=== PATIENT | female | born 1940 | race African-American/Black ===

== ENCOUNTER 2020-09-03 10:14 | Outpatient (REF) | payer OTHER, SELFPAY ==
[2020-09-03 11:19] LABS: MANUAL DIFF FLAG NO
[2020-09-03 11:47] LABS: Basophils Percent Auto 0.9 % (0-2); Eosinophils Absolute Auto 0.1 X10*3/uL (0.0-0.4); Eosinophils Percent Auto 1.9 % (0-4); Hematocrit 38.7 % (37-47); Hemoglobin 12.3 g/dl (12.0-16.0); Imm Gran Abs Auto 0.01 X10*3/uL (0.00-0.03); Imm Gran Pct Auto 0.2 % (0.0-0.4); Lymphocytes Absolute Auto 2.5 X10*3/uL (1.2-4.9); Lymphocytes Percent Auto 57.4 % (20-40); Mean Corpuscular HGB Conc 31.8 g/dl (31.0-35.0); Mean Corpuscular Hemoglobin 28.5 pg (27.0-33.0); Mean Corpuscular Volume 89.6 fL (80-98); Mean Platelet Volume 9.9 fL (9.4-12.3); Monocytes Absolute Auto 0.3 X10*3/uL (0.1-1.2); Monocytes Percent Auto 6.9 % (2-11); Neutrophils Absolute Auto 1.4 X10*3/uL (2.0-8.3); Neutrophils Percent Auto 32.7 % (45-73); Platelet Count 270 X10*3/uL (160-400); Red Blood Count 4.32 X10*6/uL (4.20-5.50); Red Cell Distribution Width 13.1 % (11.0-16.0); White Blood Count 4.3 X10*3/uL (4.8-10.8)
[2020-09-03 12:09] LABS: Alanine Aminotransferase 24 U/L (0-31); Albumin Level 4.1 g/dL (3.5-5.0); Alkaline Phosphatase 78 U/L (39-117); Anion Gap 11 (12-20); Aspartate Amino Transferase 29 U/L (5-31); Bilirubin Total 0.8 mg/dL (0.0-1.0); Blood Urea Nitrogen 8 mg/dL (9-16); Carbon Dioxide 28 mmol/L (22-29); Chloride 107 mmol/L (96-108); Cholesterol 247 mg/dL; Estimated Glomerular Filt Rate > 60; Glucose Fasting 86 mg/dL (60-99); HDL Cholesterol 70 mg/dL; LDL Cholesterol Calculated 155 mg/dl; Potassium 4.3 mmol/l (3.3-5.1); Sodium 142 mmol/L (135-145); Triglycerides 114 mg/dL
[2020-09-03 12:35] LABS: Thyroid Stimulating Hormone 1.24 uIU/mL (0.32-4.0); Vitamin D 25-OH Total 17.8 ng/mL (>30)
== END 2020-09-03 10:15 | disposition home or self-care (01) ==
LOC: HO.HMGCLDS 10:14
PROVIDERS: PCP Internal Medicine; Visit Provider Internal Medicine
DX: J44.9 Chronic obstructive pulmonary disease, unspecified (principal); Z76.89 Persons encountering health services in other specified circumstances; I10 Essential (primary) hypertension; E78.2 Mixed hyperlipidemia; E55.9 Vitamin D deficiency, unspecified
CPT/HCPCS: 36415; 80053; 80061; 82306; 84443; 85025

== ENCOUNTER 2020-09-05 11:07 | Outpatient (REF) | payer OTHER, SELFPAY ==
--- NOTE | 2020-09-05 11:13 | XR_ITS ---
EXAMINATION: XR CHEST CLINICAL INFORMATION: COPD COMPARISON: None TECHNIQUE: 2 views of the chest were obtained. FINDINGS: There is hyperinflation/COPD. The heart is normal in size. The vascularity is normal. There is no vascular congestion, airspace consolidation, groundglass opacity, or effusion. The costophrenic sulci are clear. The hilar and mediastinal contours are normal. There is gentle dextrocurvature thoracic spine with mild multilevel degenerative changes mid thoracic region. XR/XR chest 2V IMPRESSION: Hyperinflation/COPD. Lungs clear.
== END 2020-09-05 11:08 | disposition home or self-care (01) ==
LOC: HO.HMGCLDS 11:07
PROVIDERS: PCP Internal Medicine; Visit Provider Internal Medicine
DX: J44.9 Chronic obstructive pulmonary disease, unspecified (principal)
CPT/HCPCS: 71046

== ENCOUNTER → 2020-09-28 09:47 | Outpatient (BNVA) | payer OTHER, SELFPAY | PROVIDERS: PCP Internal Medicine; Visit Provider Hospitalist | DX: Z76.89 Persons encountering health services in other specified circumstances (principal) ==

== ENCOUNTER → 2020-11-12 13:00 | Outpatient (BNVA) | payer OTHER, SELFPAY | PROVIDERS: PCP Internal Medicine; Visit Provider Hospitalist ==

== ENCOUNTER → 2020-12-24 09:09 | Outpatient (BNVA) | payer MEDICARE, SELFPAY | PROVIDERS: PCP Nurse Practitioner Family; Visit Provider Hospitalist | DX: J45.40 Moderate persistent asthma, uncomplicated (principal); J30.9 Allergic rhinitis, unspecified; J40 Bronchitis, not specified as acute or chronic | CPT/HCPCS: 99212 ==

== ENCOUNTER 2021-02-01 10:32 | Outpatient (REF) | payer MEDICARE, SELFPAY ==
--- NOTE | 2021-02-01 | PFT_ITS ---
Forced vital capacity is slightly decreased. FEV1, QNH51-86, and MVV are markedly decreased. Post-bronchodilator therapy, there is no significant change. Total lung capacity and residual volume are normal. Diffusion capacity, moderately decreased. CONCLUSION: These results are consistent with severe obstructive airway disorder. There is no response to bronchodilator therapy. Clinical correlation is recommended. MD NADYA King/KATIUSKA / [id number]
== END 2021-02-01 10:33 | disposition home or self-care (01) ==
LOC: HO.RESP 10:32
PROVIDERS: PCP Nurse Practitioner Family; Visit Provider Hospitalist
DX: J44.9 Chronic obstructive pulmonary disease, unspecified (principal)
CPT/HCPCS: 94060; 94727; 94729

== ENCOUNTER 2021-02-19 10:23 | Outpatient (REF) | payer MEDICARE, SELFPAY | END 2021-02-19 10:24 | disposition home or self-care (01) | LOC: HO.MDS 10:23 | PROVIDERS: PCP Nurse Practitioner Family; Visit Provider Hospitalist | DX: J45.50 Severe persistent asthma, uncomplicated (principal) | CPT/HCPCS: 96372; J2357 ==

== ENCOUNTER 2021-03-05 10:10 | Outpatient (REF) | payer MEDICARE, SELFPAY | END 2021-03-05 10:11 | disposition home or self-care (01) | LOC: HO.MDS 10:10 | PROVIDERS: PCP Nurse Practitioner Family; Visit Provider Hospitalist | DX: J45.50 Severe persistent asthma, uncomplicated (principal) | CPT/HCPCS: 96372; J2357 ==

== ENCOUNTER 2021-03-19 10:50 | Outpatient (REF) | payer MEDICARE, SELFPAY | END 2021-03-19 10:51 | disposition home or self-care (01) | LOC: HO.MDS 10:50 | PROVIDERS: Visit Provider Hospitalist | DX: J45.50 Severe persistent asthma, uncomplicated (principal) | CPT/HCPCS: 96372; J2357 ==

== ENCOUNTER 2021-03-27 07:56 | Outpatient (REF) | payer MEDICARE, SELFPAY ==
--- NOTE | ~2021-03-27 | XR_ITS ---
EXAMINATION: CR X-RAY KNEE IS BILATERAL CLINICAL INFORMATION: Knee pain. COMPARISON: None TECHNIQUE: 3 views of the right knee were obtained along with standing AP views of both knees. FINDINGS: Mild femoral-tibial joint space narrowing and minimal marginal osteophyte formation is seen bilaterally. Severe degenerative changes are seen in the lateral patellofemoral articulation. Mild degenerative changes are seen medially. There is no significant joint effusion. The soft tissues are unremarkable. XR/XR knee RT 2V IMPRESSION: Tricompartmental degenerative joint changes most pronounced in the lateral patellofemoral compartment. No acute abnormality.
--- NOTE | ~2021-03-27 | XR_ITS ---
EXAMINATION: CR X-RAY KNEE IS BILATERAL CLINICAL INFORMATION: Knee pain. COMPARISON: None TECHNIQUE: 3 views of the right knee were obtained along with standing AP views of both knees. FINDINGS: Mild femoral-tibial joint space narrowing and minimal marginal osteophyte formation is seen bilaterally. Severe degenerative changes are seen in the lateral patellofemoral articulation. Mild degenerative changes are seen medially. There is no significant joint effusion. The soft tissues are unremarkable. XR/XR knee standing BI IMPRESSION: Tricompartmental degenerative joint changes most pronounced in the lateral patellofemoral compartment. No acute abnormality.
== END 2021-03-27 07:57 | disposition home or self-care (01) ==
LOC: HO.HOSX 07:56
PROVIDERS: Visit Provider Physician Assistant
DX: M17.11 Unilateral primary osteoarthritis, right knee (principal)
CPT/HCPCS: 20610; 73560; 73565; 99202; J1040

== ENCOUNTER 2021-04-05 10:25 | Outpatient (REF) | payer MEDICARE, SELFPAY | END 2021-04-05 10:26 | disposition home or self-care (01) | LOC: HO.MDS 10:25 | PROVIDERS: PCP Nurse Practitioner Family; Visit Provider Hospitalist | DX: J45.50 Severe persistent asthma, uncomplicated (principal) | CPT/HCPCS: 96372; J2357 ==

== ENCOUNTER 2021-04-22 09:18 | Outpatient (REF) | payer MEDICARE, SELFPAY | END 2021-04-22 09:19 | disposition home or self-care (01) | LOC: HO.MDS 09:18 | PROVIDERS: PCP Nurse Practitioner Family; Visit Provider Hospitalist | DX: J45.50 Severe persistent asthma, uncomplicated (principal) | CPT/HCPCS: 96372; J2357 ==

== ENCOUNTER 2021-05-14 09:06 | Outpatient (REF) | payer MEDICARE, SELFPAY ==
--- NOTE | ~2021-05-14 | XR_ITS ---
EXAMINATION: XR CHEST CLINICAL INFORMATION: Moderate persistent asthma, uncomplicated. COMPARISON: None TECHNIQUE: 2 views of the chest were obtained. FINDINGS: The lungs are well-expanded and clear of acute pneumonic process. There is minimal atelectatic changes in right lower lobe.. There is mild blunting of right CP angle from pleural effusion or pleural thickening. The heart size and pulmonary vascularity is normal. There is mild dextroscoliosis of dorsal spine. There is no lytic process. XR/XR chest 2V IMPRESSION: Mild blunting of right CP angle from pleural effusion or pleural thickening. There is minimal linear atelectasis in right lung base.
== END 2021-05-14 09:07 | disposition home or self-care (01) ==
LOC: HO.XRAY 09:06
PROVIDERS: PCP Nurse Practitioner Family; Visit Provider Hospitalist
DX: J45.40 Moderate persistent asthma, uncomplicated (principal); J44.9 Chronic obstructive pulmonary disease, unspecified; J30.9 Allergic rhinitis, unspecified; J40 Bronchitis, not specified as acute or chronic
CPT/HCPCS: 71046; 99212

== ENCOUNTER → 2021-06-18 12:54 | Outpatient (BNVA) | payer MEDICARE, SELFPAY | PROVIDERS: PCP Nurse Practitioner Family; Visit Provider Hospitalist | DX: J45.40 Moderate persistent asthma, uncomplicated (principal) | CPT/HCPCS: 99211 ==

== ENCOUNTER → 2021-08-15 09:38 | Outpatient (BNVA) | payer MEDICARE, SELFPAY | PROVIDERS: PCP Registered Nurse; Visit Provider Hospitalist | DX: J45.40 Moderate persistent asthma, uncomplicated (principal); J30.9 Allergic rhinitis, unspecified; R06.00 Dyspnea, unspecified; R07.89 Other chest pain | CPT/HCPCS: 99212 ==

== ENCOUNTER 2022-02-19 09:19 | Outpatient (REF) | payer MEDICARE, MEDICAID, SELFPAY ==
[2022-02-19 10:47] LABS: MANUAL DIFF FLAG NO
[2022-02-19 11:48] LABS: Basophils Percent Auto 0.6 % (0-2); Eosinophils Absolute Auto 0.1 X10*3/uL (0.0-0.4); Eosinophils Percent Auto 1.1 % (0-4); Hematocrit 39.9 % (37.0-47.0); Hemoglobin 12.4 g/dl (12.0-16.0); Imm Gran Abs Auto 0.01 X10*3/uL (0.00-0.03); Imm Gran Pct Auto 0.2 % (0.0-0.4); Lymphocytes Absolute Auto 1.9 X10*3/uL (1.2-4.9); Lymphocytes Percent Auto 39.6 % (20-40); Mean Corpuscular HGB Conc 31.1 g/dl (31.0-35.0); Mean Corpuscular Volume 90.1 fL (80.0-98.0); Mean Platelet Volume 10.1 fL (9.4-12.3); Monocytes Absolute Auto 0.3 X10*3/uL (0.1-1.2); Monocytes Percent Auto 7.2 % (2-11); Neutrophils Absolute Auto 2.4 x10*3/uL (2.0-8.3); Neutrophils Percent Auto 51.3 % (45-73); Platelet Count 281 X10*3/uL (160-400); Red Blood Count 4.43 X10*6/uL (4.20-5.50); Red Cell Distribution Width 13.5 % (11.0-16.0); White Blood Count 4.8 X10*3/uL (4.8-10.8)
[2022-02-19 11:51] LABS: D Dimer High Sensitivity 285 NG/ML
[2022-02-19 12:35] LABS: Anion Gap 12 (12-20); Blood Urea Nitrogen 6 mg/dL (9-16); Calcium 9.8 mg/dL (8.4-10.2); Carbon Dioxide 32 mmol/L (22-29); Chloride 103 mmol/L (96-108); Estimated Glomerular Filt Rate > 60; Glucose Random 93 mg/dL (60-115); Potassium 4.2 mmol/L (3.3-5.1); Sodium 143 mmol/L (135-145)
[2022-02-19 12:39] LABS: Troponin-I High Sensitivity 6.2 ng/L (<3.5-17.0)
[2022-02-19 12:51] LABS: Erythrocyte Sedimentation Rate 14 MM/HR (0-20)
[2022-02-21 14:32] LABS: Alpha 1 Anti-trypsin 125 mg/dL (83-199)
== END 2022-02-19 09:20 | disposition home or self-care (01) ==
LOC: HO.LAB 09:19
PROVIDERS: PCP Registered Nurse; Visit Provider Hospitalist
DX: J44.1 Chronic obstructive pulmonary disease with (acute) exacerbation (principal); J45.40 Moderate persistent asthma, uncomplicated; J30.9 Allergic rhinitis, unspecified; R07.89 Other chest pain; R06.00 Dyspnea, unspecified; R78.89 Finding of other specified substances, not normally found in blood
CPT/HCPCS: 36415; 80048; 82103; 84484; 85025; 85379; 85652; 99212

== ENCOUNTER 2022-02-21 08:09 | Outpatient (REF) | payer MEDICARE, MEDICAID, SELFPAY ==
--- NOTE | ~2022-02-21 | CT_ITS ---
EXAMINATION: CT ANGIOGRAM OF THE CHEST WITH AND WITHOUT CONTRAST (CT PULMONARY ANGIOGRAM FOR PE) CLINICAL INFORMATION: Reason for Exam R07.89 - Other chest pain COMPARISON: Previous chest x-ray most recent April 2021 TECHNIQUE: Prior to contrast administration, noncontrast localization images were obtained. Subsequently, multidetector volumetric imaging was performed from the thoracic inlet to below the diaphragms following the administration of 65 mL Omnipaque 350 intravenous contrast. No contrast reaction reported Sagittal, coronal, and MIP oblique sagittal reformatted images were obtained on the CT workstation, uploaded to PACS, and reviewed. This CT examination was performed using dose optimization techniques as appropriate, variously including the following: *Automated exposure control *Adjustment of mA and/or kV according to patient size (this includes techniques or standardized protocols for targeted exams where dose is matched to indication/reason for exam; i.e. extremities or head) *Use of iterative reconstruction technique Total exam dose-length product 96 mGy-cm FINDINGS: QUALITY OF STUDY/CONTRAST BOLUS: Satisfactory. PULMONARY ARTERIES: No central or segmental pulmonary emboli. The pulmonary arteries are upper normal in size. THORACIC AORTA: No aneurysm or dissection. LUNG: There is mild emphysema. There is almost complete right middle lobe atelectasis. There is a subsegmental atelectasis seen in the lingula and left lower lobe. There are scattered areas of mild bronchial wall thickening. No endobronchial or endotracheal lesion is seen. PLEURA: No pleural effusion or pneumothorax. MEDIASTINUM: The heart is enlarged. Mild coronary artery calcification. No pericardial effusion. No hilar or mediastinal lymphadenopathy. No evidence of septal bowing or right heart strain. CHEST WALL/AXILLA: No axillary or internal mammary lymphadenopathy. OSSEOUS STRUCTURES: No acute or suspicious osseous abnormality. UPPER ABDOMEN: Unremarkable. No reflux of contrast into the hepatic veins to suggest elevated right heart pressures. CT/CT angio chest PE protocol IMPRESSION: No evidence of pulmonary embolism. Mild emphysema. Almost complete right middle lobe atelectasis. Subsegmental atelectasis in the inferior segment of the lingula and left lower lobe. Mild airways disease. Enlarged heart. Mild coronary artery calcification. Upper normal-size pulmonary arteries. VTE: negative
[2022-02-21] MEDS: iohexoL 350 MG/ML 100 ML INFUS..BTL IV (09:25)
== END 2022-02-21 08:10 | disposition home or self-care (01) ==
LOC: HO.CT 08:09
PROVIDERS: PCP Registered Nurse; Visit Provider Hospitalist
DX: R07.89 Other chest pain (principal); R06.00 Dyspnea, unspecified; R78.89 Finding of other specified substances, not normally found in blood
CPT/HCPCS: 71275; Q9967

== ENCOUNTER → 2022-05-20 11:29 | Outpatient (REF) | payer OTHER, SELFPAY ==
--- NOTE | 2022-05-20 11:41 | ECG_ITS ---
Test Reason : CP Blood Pressure : / mmHG Vent. Rate : 065 BPM Atrial Rate : 065 BPM P-R Int : 162 ms QRS Dur : 072 ms QT Int : 376 ms P-R-T Axes : 079 043 040 degrees QTc Int : 391 ms Normal sinus rhythm with sinus arrhythmia Normal ECG No previous ECGs available Referred By: Rosalio Orta Electronically Signed By:SHE HOGUE
== END ==
LOC: HO.CARD 11:29
PROVIDERS: Visit Provider Hospitalist
DX: R07.89 Other chest pain (principal); J44.9 Chronic obstructive pulmonary disease, unspecified; J45.40 Moderate persistent asthma, uncomplicated; R06.00 Dyspnea, unspecified; J30.9 Allergic rhinitis, unspecified
CPT/HCPCS: 93005; 99212

== ENCOUNTER → 2022-11-03 11:08 | Outpatient (BNVA) | payer OTHER, SELFPAY | PROVIDERS: Visit Provider Hospitalist | DX: J45.40 Moderate persistent asthma, uncomplicated (principal); J44.1 Chronic obstructive pulmonary disease with (acute) exacerbation; J30.9 Allergic rhinitis, unspecified; R07.89 Other chest pain; R06.00 Dyspnea, unspecified | CPT/HCPCS: 99212 ==

== ENCOUNTER 2022-12-03 08:49 | Outpatient (REF) | payer OTHER, SELFPAY ==
--- NOTE | ~2022-12-03 | XR_ITS ---
EXAMINATION: XR CHEST CLINICAL INFORMATION: Bronchopneumonia COMPARISON: Prior chest April 2021 TECHNIQUE: 2 views of the chest were obtained. FINDINGS: No significant abnormality is noted involving the heart, lungs, mediastinum, bony thorax or soft tissues. XR/XR chest 2V IMPRESSION: Unremarkable examination.
== END 2022-12-03 08:50 | disposition home or self-care (01) ==
LOC: HO.XRAY 08:49
PROVIDERS: Visit Provider Hospitalist
DX: J18.0 Bronchopneumonia, unspecified organism (principal); R06.00 Dyspnea, unspecified; R07.89 Other chest pain; J30.9 Allergic rhinitis, unspecified; J45.41 Moderate persistent asthma with (acute) exacerbation; Z99.81 Dependence on supplemental oxygen
CPT/HCPCS: 71046; 87070; 87077; 87185; 87205; 94640; 99212

== ENCOUNTER → 2023-03-20 13:44 | Outpatient (BNVA) | payer OTHER, SELFPAY | PROVIDERS: Visit Provider Nurse Practitioner Family | DX: J44.9 Chronic obstructive pulmonary disease, unspecified (principal); R06.01 Orthopnea | CPT/HCPCS: 99212 ==

== ENCOUNTER 2023-09-16 08:30 | Outpatient (REF) | payer OTHER, SELFPAY ==
--- NOTE | 2023-09-16 09:09 | ECG_ITS ---
Test Reason : copd Blood Pressure : / mmHG Vent. Rate : 088 BPM Atrial Rate : 088 BPM P-R Int : 174 ms QRS Dur : 070 ms QT Int : 370 ms P-R-T Axes : 073 040 040 degrees QTc Int : 447 ms Normal sinus rhythm Normal ECG When compared with ECG of 20-MAY-2022 11:38, No significant changes seen Referred By: Rosalio Orta Electronically Signed By:BELLA CHANDLER MD
[2023-09-16 09:27] LABS: MANUAL DIFF FLAG NO
[2023-09-16 09:56] LABS: Basophils Absolute Auto 0.1 X10*3/uL (0.0-0.2); Eosinophils Absolute Auto 0.1 X10*3/uL (0.0-0.4); Hematocrit 42.3 % (37.0-47.0); Hemoglobin 13.5 g/dl (12.0-16.0); Imm Gran Abs Auto 0.02 X10*3/uL (0.00-0.03); Imm Gran Pct Auto 0.4 % (0.0-0.4); Lymphocytes Absolute Auto 2.5 X10*3/uL (1.2-4.9); Lymphocytes Percent Auto 50.3 % (20-40); Mean Corpuscular HGB Conc 31.9 g/dl (31.0-35.0); Mean Corpuscular Hemoglobin 28.6 pg (27.0-33.0); Mean Corpuscular Volume 89.6 fL (80.0-98.0); Mean Platelet Volume 9.3 fL (9.4-12.3); Monocytes Absolute Auto 0.4 X10*3/uL (0.1-1.2); Neutrophils Absolute Auto 1.9 x10*3/uL (2.0-8.3); Neutrophils Percent Auto 38.3 % (45-73); Platelet Count 266 X10*3/uL (160-400); Red Blood Count 4.72 X10*6/uL (4.20-5.50); Red Cell Distribution Width 13.1 % (11.0-16.0)
[2023-09-16 10:37] LABS: Erythrocyte Sedimentation Rate 9 MM/HR (0-20)
[2023-09-16 10:46] LABS: Anion Gap 11 (12-20); Blood Urea Nitrogen 8 mg/dL (9-16); Calcium 9.6 mg/dL (8.4-10.2); Carbon Dioxide 30 mmol/L (22-29); Chloride 105 mmol/L (96-108); Estimated Glomerular Filt Rate > 60; Glucose Random 98 mg/dL (60-115); Potassium 3.7 mmol/L (3.3-5.1); Sodium 142 mmol/L (135-145)
[2023-09-16 10:50] LABS: Troponin-I High Sensitivity 4.9 ng/L (<3.5-17.0)
== END 2023-09-16 08:31 | disposition home or self-care (01) ==
LOC: HO.LAB 08:30
PROVIDERS: PCP Internal Medicine; Visit Provider Hospitalist
DX: J45.41 Moderate persistent asthma with (acute) exacerbation (principal); R06.00 Dyspnea, unspecified; J30.9 Allergic rhinitis, unspecified; R07.9 Chest pain, unspecified; J44.9 Chronic obstructive pulmonary disease, unspecified
CPT/HCPCS: 36415; 80048; 84484; 85025; 85652; 93005; 96372; 99212; J2930

== ENCOUNTER 2023-09-16 08:30 | Outpatient (AMB) | payer OTHER, SELFPAY ==
[2023-09-16 08:42] VITALS: BP 124/70; PULSE 89; O2SAT 93; BMI 20.9
--- NOTE | 2023-09-16 08:42 | A.OFFVIS_ITS ---
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 At the last office visit patient has been switched to Wixela, however she still has suboptimal control of her underlying allergies. She also uses Singulair and albuterol MDI. She has completed her laboratory testing. She denies any recent exacerbation, though her symptoms are not controlled at the baseline. She is still having issues with her asthma. Having significant chest tightness. Moderate severity. Response of the nebulized therapy but she has been having to use it a couple times a day. She did start the Xolair. She states that wixela inhalers not helping. Will try to maximize her respiratory therapy at this time. In the meantime she needs to continue taking the Xolair to see if this can be effective for. I explained to her that it may take up to 4- 6 months to see the real affects of the Xolair. 05/20/2022 The patient is here for a pulmonary follow up visit. She is still having a hard time with her breathing. She does not responds well to the inhalers. She has daily episodes and responds well to albuterol via nebulizer. She also tried and failed biologic therapy. She did undergo a CT chest demonstrating mosiac pattern due to the small airways disease. She also has coronary artery calcifications. Also, CT chest has evidence of atelectasis. We will trial nebulized therapy and will consider Daliresp if no better. Also will go ahead with a cardiology evaluation. 11/03/2022 the patient is here for a pulmonary follow-up visit. The patient has complains of worsening chest tightness and wheezing. Her symptoms are now worse at nighttime. She is waking up with wheezing and needing to give herself a breathing treatment. She has been on nebulized therapy both with budesonide and DuoNeb. She does use between 3-4 treatments a day. The patient has tried and failed multiple inhalers in the past. She also tried and failed Xolair and also Dupixent for her significant allergic asthma. We did talk about considering other biologic therapy such as Tezspire. She does have an elevated IgE and also has significant allergies on her blood work. The on examination she does have some wheezing. Her CT scan does demonstrate mosaic pattern consistent with small airways disease. Will go ahead and refer her to Allergy and start her on a prednisone taper again. 12/03/2022 the patient is here for sick visit. She has been sick now for the last 3-4 days. She is developing worsening cough. Very deep in congested. Difficult to expectorate. She feels very tired and weak. She is having increasing chest tightness and wheezing. When she is able to expectorate the mucus is very thick and tenacious in green in color. In the office she did have evidence of rhonchi and also crackles on the left base. The patient did receive hypertonic saline with Xopenex and then were able to get a sputum for culture. will go ahead and send a course of antibiotics to the pharmacy. She does have multiple allergies. The patient also has some wheezing will send her some prednisone as well. She does appear to be frail. Her oxygen appears to be adequate at this time. Will go ahead and treat her with prednisone antibiotics. However, if her conditions worsen she is to call the office or go to the ER for further care. She is going to continue with the nebulized therapy. Once we get the culture of her sputum will go ahead and tailor the antibiotic therapy. 09/16/2023 the patient is here for a pulmonary follow-up visit. The patient is complaining of substernal chest tightness. This is been going on now for several days. She complains of shortness of breath at rest and also with m inimal activity. She has not been responding to her respiratory medications. She feels that she has a lot of airway resistance. In the office she does have bad very diminished breath sounds and prolonged expiratory phase will going to give her a dose of Solu-Medrol to see if this provides some relief. We did go for brief walking oximetry in the heart rate went up to about 133 in the patient was dyspneic with dyspnea score of 6/10. Pulse ox was stable. Explained to her that she if she continues to develop the chest discomfort she may need to go to the ER to assess any cardiac issues. Meantime she will undergo blood work including a troponin I and also undergo an EKG. If her does have abnormal that will also call her to go to the ER. In the meantime will go ahead and treat her with some prednisone for her asthma exacerbation with chest tightness that may also be contributing to her ongoing chest tightness. 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 Maternal Grandmother HTN (hypertension) Diabetes mellitus Daughter Tonsillar cancer Smoker Housing: Apartment Housing Other:: living with daughter Alcohol intake: current Alcohol intake frequency: a few times a month Alcohol type: beer Patient Tobacco Use Status: Never used Tobacco e-Cigarette/Vaping Use: Never Used Second Hand Smoke Exposure: No service: No Current occupational status: retired Review of Systems Const Reports fatigue, Denies fever(s), Denies night sweats, Reports poor appetite, Re ports weakness and Reports weight loss ENT Denies change in voice, Denies lip swelling, Denies mouth pain, Reports nasal congestion, Reports nasal discharge and Denies tongue swelling Card Reports chest pain, Reports dyspnea and Reports dyspnea on exertion Resp Reports cough, Denies hemoptysis, Reports dyspnea, Reports dyspnea on exertion and Reports wheezing GI Denies abdominal pain Musc Denies no additional complaints Neuro Denies Neuro-related abnormal movements and Reports weakness Psych Denies no additional complaints Endo Reports fatigue Dat/Lymph Denies easy bleeding and Denies lymphadenopathy Aller/Immun Denies lip swelling, Denies tongue swelling and Reports wheezing Physical Exam Vital Signs: Last Vital Signs Pulse 89 09/16/23 08:42 BP 124/70 09/16/23 08:42 Pulse Ox 93 09/16/23 08:42 Oxygen Delivery Method Room Air 09/16/23 08:42 BMI result Body Mass Index 20.9 Const General: alert and tired appearing Neck Neck: Yes normal visual inspection, Yes full ROM and Yes no lymphadenopathy Chest Chest palpation & inspection: normal inspection of the chest Resp Auscultation: wheezes and diminished lung sounds Cardio Rate: regular rate Rhythm: regular rhythm Heart sounds: S1 normal heart sound present and S2 normal heart sound present GI Palpation (GI): Soft to palpation and nontender Auscultation: normal bowel sounds Skin General skin exam: rashes and/or lesions noted Office Meds methylprednisolone sod suc(PF) 125 mg/2 mL solution for injection Performing Provider: Rosalio Orta MD [place] [facility] Administered by: Rosibel Hobbs LPN on 09/16/23 09:12 Dose Route Admin Location Dispensed Lot Number Expiration Date [facility] Technology Risk [employer] 125 mg IM R buttock 2 mL [id number] 10/25/25 8882-0195-96 [employer] [place] [employer] Assessment & Plan Assessment & Plan (1) Asthma: Code(s): J45.909 - Unspecified asthma, uncomplicated Qualifiers: Asthma complication type: with acute exacerbation Asthma persistence: persistent Asthma severity: moderate Qualified Code(s): J45.41 - Moderate persistent asthma with (acute) exacerbation (2) Dyspnea: Code(s): R06.00 - Dyspnea, unspecified Qualifiers: Dyspnea type: dyspnea on exertion Qualified Code(s): R06.00 - Dyspnea, unspecified (3) Chronic allergic rhinitis: Code(s): J30.9 - Allergic rhinitis, unspecified (4) Chest pain: Code(s): R07.9 - Chest pain, unspecified Qualifiers: Chest pain type: unspecified Qualified Code(s): R07.9 - Chest pain, unspecified Plan Solumedrol 125mg IM x 1 prednisone taper Bloodwork EKG CHULA as needed continue Duoneb combivent should go to the ED for worsening symptoms or recurrent chest pains F/U 2 months Orders: Orders Basic Metabolic Panel 09/16/23 R06.00 - Dyspnea, unspecified, R07.9 - Chest pain, unspecified ECG 12 lead EKG 09/16/23 J44.9 - Chronic obstructive pulmonary disease, unspecified, R06.00 - Dyspnea, unspecified, R07.9 - Chest pain, unspecified Troponin-I High Sensitivity 09/16/23 R06.00 - Dyspnea, unspecified, R07.9 - Chest pain, unspecified Complete Blood Count Auto Diff 09/16/23 R06.00 - Dyspnea, unspecified, R07.9 - Chest pain, unspecified Erythrocyte Sedimentation Rate 09/16/23 R06.00 - Dyspnea, unspecified, R07.9 - Chest pain, unspecified AMB Methylprednisolone Injection 09/16/23 J45.909 - Unspecified asthma, uncomplicated Medications: New prednisone PO daily; Take 2 tabs daily x 7 days, then 1 tab daily x 14 days 28 tabs 0RF 21 days Coding Level of Care Code Est Pt Level 4 (19070) Diagnoses Moderate persistent asthma with acute exacerbation J45.41 Asthma complication type: with acute exacerbation Asthma persistence: persistent Asthma severity: moderate Dyspnea on exertion R06.00 Dyspnea type: dyspnea on exertion Chronic allergic rhinitis J30.9 Chest pain, unspecified type R07.9 Chest pain type: unspecified Time Spent (min) 16
== END 2023-09-16 09:01 | disposition home or self-care (01) ==
PROVIDERS: PCP Internal Medicine; Visit Provider Hospitalist
DX: J45.41 Moderate persistent asthma with (acute) exacerbation (principal); R06.00 Dyspnea, unspecified; J30.9 Allergic rhinitis, unspecified; R07.9 Chest pain, unspecified
CPT/HCPCS: 99214

== ENCOUNTER 2024-01-20 10:49 | Outpatient (AMB) | payer OTHER, SELFPAY ==
[2024-01-20 11:01] VITALS: PULSE 86; O2SAT 94; BMI 20.9
--- NOTE | 2024-01-20 11:01 | A.OFFVIS_ITS ---
Intake Vital Signs 01/20/24 11:01 Height 5 ft 11 in Weight 149 lb 14.629 oz BMI 20.9 Pulse 86 Pulse Source Pulse Oximeter Pulse Oximetry (%) 94 Oxygen Delivery Method Room Air Intake Visit Reasons: Cough Allergies influenza A (H1N1) virus vaccine m-morris-split 2008 [From influenza A (H1N1)] Allergy (Severe, Verified 01/20/24 11:02) Rash pneumococcal vaccine Allergy (Severe, Verified 01/20/24 11:02) rash amoxicillin Allergy (Intermediate, Verified 01/20/24 11:02) hives ENVIRONMENTAL Allergy (Severe, Uncoded 01/20/24 11:02) Rash HPI HPI Comments History of Present Illness Details 83 year-old lady, lifetime nonsmoker, with followed for moderate to severe persistent asthma. At the last office visit patient has been switched to Wixela, however she still has suboptimal control of her underlying allergies. She also uses Singulair and albuterol MDI. She has completed her laboratory testing. She denies any recent exacerbation, though her symptoms are not controlled at the baseline. She is still having issues with her asthma. Having significant chest tightness. Moderate severity. Response of the nebulized therapy but she has been having to use it a couple times a day. She did start the Xolair. She states that wixela inhalers not helping. Will try to maximize her respiratory therapy at this time. In the meantime she needs to continue taking the Xolair to see if this can be effective for. I explained to her that it may take up to 4- 6 months to see the real affects of the Xolair. 05/20/2022 The patient is here for a pulmonary follow up visit. She is still having a hard time with her breathing. She does not responds well to the inhalers. She has daily episodes and responds well to albuterol via nebulizer. She also tried and failed biologic therapy. She did undergo a CT chest demonstrating mosiac pattern due to the small airways disease. She also has coronary artery calcifications. Also, CT chest has evidence of atelectasis. We will trial nebulized therapy and will consider Daliresp if no better. Also will go ahead with a cardiology evaluation. 11/03/2022 the patient is here for a pulmonary follow-up visit. The patient has complains of worsening chest tightness and wheezing. Her symptoms are now worse at nighttime. She is waking up with wheezing and needing to give herself a breathing treatment. She has been on nebulized therapy both with budesonide and DuoNeb. She does use between 3-4 treatments a day. The patient has tried and failed multiple inhalers in the past. She also tried and failed Xolair and also Dupixent for her significant allergic asthma. We did talk about considering other biologic therapy such as Tezspire. She does have an elevated IgE and also has significant allergies on her blood work. The on examination she does have some wheezing. Her CT scan does demonstrate mosaic pattern consistent with small airways disease. Will go ahead and refer her to Allergy and start her on a prednisone taper again. 12/03/2022 the patient is here for sick visit. She has been sick now for the last 3-4 days. She is developing worsening cough. Very deep in congested. Difficult to expectorate. She feels very tired and weak. She is having increasing chest tightness and wheezing. When she is able to expectorate the mucus is very thick and tenacious in green in color. In the office she did have evidence of rhonchi and also crackles on the left base. The patient did receive hypertonic saline with Xopenex and then were able to get a sputum for culture. will go ahead and send a course of antibiotics to the pharmacy. She does have multiple allergies. The patient also has some wheezing will send her some prednisone as well. She does appear to be frail. Her oxygen appears to be adequate at this time. Will go ahead and treat her with prednisone antibiotics. However, if her conditions worsen she is to call the office or go to the ER for further care. She is going to continue with the nebulized therapy. Once we get the culture of her sputum will go ahead and tailor the antibiotic therapy. 09/16/2023 the patient is here for a pulmonary follow-up visit. The patient is complaining of substernal chest tightness. This is been going on now for several days. She complains of shortness of breath at rest and also with minimal activity. She has not been responding to her respiratory medications. She feels that she has a lot of airway resistance. In the office she does have bad very diminished breath sounds and prolonged expiratory phase will going to give her a dose of Solu-Medrol to see if this provides some relief. We did go for brief walking oximetry in the heart rate went up to about 133 in the patient was dyspneic with dyspnea score of 6/10. Pulse ox was stable. Explained to her that she if she continues to develop the chest discomfort she may need to go to the ER to assess any cardiac issues. Meantime she will undergo blood work including a troponin I and also undergo an EKG. If her does have abnormal that will also call her to go to the ER. In the meantime will go ahead and treat her with some prednisone for her asthma exacerbation with chest tightness that may also be contributing to her ongoing chest tightness. 01/20/2024 the patient is here for a pulmonary follow-up visit. She had been having hard time with her asthma and also waking up short of breath with wheezing chest pain and pressure. The patient has been using her inhaler but feels that he has not working. Her inhalers are both clot up. I did washing then cleaned the plastic canister and it did improve the administration of the medication. The patient currently is not on maintenance inhaler. She understands that she has severe asthma and therefore needs to be on a triple therapy. I will send her Breztri inhaler in order for her to have 1 inhaler for maintenance and then she can use her rescue medicine as well. The patient also needs to be on allergy medications. She has significant allergies to environmental allergies to cats and dogs and unfortunately she has a cat in the house. Therefore she can start Zyrtec in the morning and then Singulair she should continue at nighttime. Patient also complaining some epigastric discomfort. Symptoms worse at nighttime. Suggest the possibility of gastritis or esophagitis. I will place her on a month course PPI. If her symptoms are not better she will call and get an x-ray. Also consider barium swallow. [facility] Medical History (Updated 01/20/24 @ 22:37 by Rosalio Orta MD) Allergies Bronchopneumonia Chest pain Dyspnea Varicose veins with pain Hypertension Numerous skin moles Swelling of right knee joint Asthma COPD exacerbation Bronchitis Chronic allergic rhinitis Asthma-COPD overlap syndrome Vitamin D deficiency Lipid disorder Varicose veins of lower extremity Osteopenia Hypertension, essential COPD mixed type Surgical History History of hammertoe correction Family History (Updated 04/25/21 @ 09:39 by MAIRA Benson) Father Unknown family medical history Mother No problems noted. Maternal Grandmother HTN (hypertension) Diabetes mellitus Daughter Tonsillar cancer Smoker Social History Housing: Apartment Housing Other:: living with daughter Alcohol intake: current Alcohol intake frequency: a few times a month Alcohol type: beer Patient Tobacco Use Status: Never used Tobacco e-Cigarette/Vaping Use: Never Used Second Hand Smoke Exposure: No service: No Current occupational status: retired Review of Systems Const Reports fatigue, Denies fever(s), Denies night sweats, Reports poor appetite, Reports weakness and Reports weight loss ENT Denies change in voice, Denies lip swelling, Denies mouth pain, Reports nasal congestion, Reports nasal discharge and Denies tongue swelling Card Reports chest pain, Reports dyspnea and Reports dyspnea on exertion Resp Reports cough, Denies hemoptysis, Reports dyspnea, Reports dyspnea on exertion and Reports wheezing GI Reports abdominal pain Musc Denies no additional complaints Neuro Denies Neuro-related abnormal movements and Reports weakness Psych Denies no additional complaints Endo Reports fatigue Dat/Lymph Denies easy bleeding and Denies lymphadenopathy Aller/Immun Denies lip swelling, Denies tongue swelling and Reports wheezing Physical Exam Vital Signs: Last Vital Signs Pulse 86 01/20/24 11:01 Pulse Ox 94 01/20/24 11:01 Oxygen Delivery Method Room Air 01/20/24 11:01 BMI result Body Mass Index 20.9 Const General: alert HEENT Head: Yes normocephalic Neck Neck: Yes normal visual inspection, Yes full ROM and Yes no lymphadenopathy Chest Chest palpation & inspection: tenderness sternum and costal cartilage Resp Effort & Inspection: normal respiratory effort Auscultation: wheezes and diminished lung sounds Cardio Rate: regular rate Rhythm: regular rhythm Heart sounds: S1 normal heart sound present and S2 normal heart sound present GI Palpation (GI): Soft to palpation and nontender Auscultation: normal bowel sounds Skin General skin exam: rashes and/or lesions noted Assessment & Plan Assessment & Plan (1) Asthma: Code(s): J45.909 - Unspecified asthma, uncomplicated Qualifiers: Asthma complication type: uncomplicated Asthma persistence: persistent Asthma severity: moderate Qualified Code(s): J45.40 - Moderate persistent asthma, uncomplicated (2) Dyspnea: Code(s): R06.00 - Dyspnea, unspecified Qualifiers: Dyspnea type: dyspnea on exertion Qualified Code(s): R06.00 - Dyspnea, unspecified (3) Chronic allergic rhinitis: Code(s): J30.9 - Allergic rhinitis, unspecified (4) Chest pain: Code(s): R07.9 - Chest pain, unspecified Qualifiers: Chest pain type: unspecified Qualified Code(s): R07.9 - Chest pain, unspecified Plan start Breztri BID CHULA as needed start Singulair start Zyrtec as needed continue Duoneb hold combivent start PPI x 6-8 weeks CXR F/U 4 months Orders: Orders XR chest 2V Today R07.9 - Chest pain, unspecified Referrals Allergy & Immunology Referral J45.909 - Unspecified asthma, uncomplicated, T78.40XA - Allergy, unspecified, initial encounter Medications: New rhrddugdnl-anzklhxt-xcjyylvpxm 160-9-4.8 mcg/actuation (Breztri Aerosphere) 2 inhalations inhalation BID 30 days 10.7 grams 11RF montelukast (Singulair) 10 mg PO BEDTIME 30 days 30 tabs 11RF J45.909 - Unspecified asthma, uncomplicated omeprazole 40 mg PO DAILY 30 days 30 caps 2RF cetirizine (Zyrtec) 10 mg PO DAILY 30 days PRN 30 tabs 11RF allergy symptoms Coding Level of Care Code Est Pt Level 4 (93643) Diagnoses Moderate persistent asthma without complication J45.40 Asthma complication type: uncomplicated Asthma persistence: persistent Asthma severity: moderate Dyspnea on exertion R06.00 Dyspnea type: dyspnea on exertion Chronic allergic rhinitis J30.9 Chest pain, unspecified type R07.9 Chest pain type: unspecified Time Spent (min) 17
== END 2024-01-20 11:24 | disposition home or self-care (01) ==
PROVIDERS: PCP Internal Medicine; Visit Provider Hospitalist
DX: J45.40 Moderate persistent asthma, uncomplicated (principal); R06.00 Dyspnea, unspecified; J30.9 Allergic rhinitis, unspecified; R07.9 Chest pain, unspecified
CPT/HCPCS: 99214

== ENCOUNTER → 2024-01-20 10:49 | Outpatient (BNVA) | payer OTHER, SELFPAY | PROVIDERS: PCP Internal Medicine; Visit Provider Hospitalist | DX: J45.40 Moderate persistent asthma, uncomplicated (principal); J30.9 Allergic rhinitis, unspecified; R06.00 Dyspnea, unspecified; R07.9 Chest pain, unspecified | CPT/HCPCS: 99212 ==

== ENCOUNTER 2024-12-29 09:14 | Outpatient (AMB) | payer OTHER, SELFPAY ==
[2024-12-29 09:37] VITALS: BP 150/92; PULSE 72; O2SAT 97; BMI 22.4
--- NOTE | 2024-12-29 09:37 | MHC.OFFVIS ---
Vital Signs 12/29/24 09:37 Height 5 ft 11 in Weight 160 lb 14.999 oz BMI 22.4 BP 150/92 H Blood Pressure Location Rt brachial Position Sitting Pulse 72 Pulse Source Pulse Oximeter Pulse Oximetry (%) 97 Oxygen Delivery Method Room Air Intake Visit Reasons: COPD Allergies influenza A (H1N1) virus vaccine m-morris-split 2008 [From influenza A (H1N1)] Allergy (Severe, Verified 12/29/24 09:39) Rash pneumococcal vaccine Allergy (Severe, Verified 12/29/24 09:39) rash amoxicillin Allergy (Intermediate, Verified 12/29/24 09:39) hives ENVIRONMENTAL Allergy (Severe, Uncoded 12/29/24 09:39) Rash HPI Comments Details: 84 year-old lady, lifetime nonsmoker, with followed for moderate to severe persistent asthma. At the last office visit patient has been switched to Wixela, however she still has suboptimal control of her underlying allergies. She also uses Singulair and albuterol MDI. She has completed her laboratory testing. She denies any recent exacerbation, though her symptoms are not controlled at the baseline. She is still having issues with her asthma. Having significant chest tightness. Moderate severity. Response of the nebulized therapy but she has been having to use it a couple times a day. She did start the Xolair. She states that wixela inhalers not helping. Will try to maximize her respiratory therapy at this time. In the meantime she needs to continue taking the Xolair to see if this can be effective for. I explained to her that it may take up to 4- 6 months to see the real affects of the Xolair. 12/29/2024 the patient is here for a pulmonary follow-up visit. She had been having hard time with her asthma and also waking up short of breath with wheezing chest pain and pressure. The patient also has had a syncopal episode and was evaluated at [facility]. She did have a CTA personally reviewed by me without any acute pulmonary disease. The patient has been using her inhaler but feels that he has not working. She understands that she has severe asthma and therefore needs to be on a triple therapy. I will send her Breztri inhaler in order for her to have 1 inhaler for maintenance and then she can use her rescue medicine as well. The patient also needs to be on allergy medications. She has significant allergies to environmental allergies to cats and dogs and unfortunately she has a cat in the house. Therefore she can start Zyrtec in the morning and then Singulair she should continue at nighttime. Patient also complaining some epigastric discomfort. Symptoms worse at nighttime. [facility] Medical History (Updated 01/20/24 @ 22:37 by Rosalio Orta MD) Allergies Bronchopneumonia Chest pain Dyspnea Varicose veins with pain Hypertension Numerous skin moles Swelling of right knee joint Asthma COPD exacerbation Bronchitis Chronic allergic rhinitis Asthma-COPD overlap syndrome Vitamin D deficiency Lipid disorder Varicose veins of lower extremity Osteopenia Hypertension, essential COPD mixed type Surgical History History of hammertoe correction Family History (Updated 04/25/21 @ 09:39 by MAIRA Benson) Father Unknown family medical history Mother No problems noted. Maternal Grandmother HTN (hypertension) Diabetes mellitus Daughter Tonsillar cancer Smoker Social History Housing: Apartment Housing Other:: living with daughter Alcohol intake: current Alcohol intake frequency: a few times a month Alcohol type: beer Patient Tobacco Use Status: Never used Tobacco e-Cigarette/Vaping Use: Never Used Second Hand Smoke Exposure: No service: No Current occupational status: retired Review of Systems Const Reports fatigue, Denies fever(s), Denies night sweats, Reports poor appetite, Reports weakness and Reports weight loss ENT Denies change in voice, Denies lip swelling, Denies mouth pain, Reports nasal congestion, Reports nasal discharge and Denies tongue swelling Card Reports chest pain, Reports dyspnea and Reports dyspnea on exertion Resp Reports cough, Denies hemoptysis, Reports dyspnea, Reports dyspnea on exertion and Reports wheezing GI Reports abdominal pain Musc Denies no additional complaints Neuro Denies Neuro-related abnormal movements and Reports weakness Psych Denies no additional complaints Endo Reports fatigue Dat/Lymph Denies easy bleeding and Denies lymphadenopathy Aller/Immun Denies lip swelling, Denies tongue swelling and Reports wheezing Physical Exam Vital Signs: Last Vital Signs Pulse 72 12/29/24 09:37 BP 150/92 H 12/29/24 09:37 Pulse Ox 97 12/29/24 09:37 Oxygen Delivery Method Room Air 12/29/24 09:37 BMI result Body Mass Index 22.4 Const General: alert HEENT Head: Yes normocephalic Neck Neck: Yes normal visual inspection, Yes full ROM and Yes no lymphadenopathy Chest Chest palpation & inspection: tenderness sternum and costal cartilage Resp Effort & Inspection: normal respiratory effort Auscultation: diminished lung sounds Cardio Rate: regular rate Rhythm: regular rhythm Heart sounds: S1 normal heart sound present and S2 normal heart sound present GI Palpation (GI): Soft to palpation and nontender Auscultation: normal bowel sounds Skin General skin exam: rashes and/or lesions noted Assessment & Plan Assessment & Plan (1) Asthma: Code(s): J45.909 - Unspecified asthma, uncomplicated Category: Medical Qualifiers: Asthma complication type: uncomplicated Asthma persistence: persistent Asthma severity: moderate Qualified Code(s): J45.40 - Moderate persistent asthma, uncomplicated (2) Dyspnea: Code(s): R06.00 - Dyspnea, unspecified Category: Medical Qualifiers: Dyspnea type: dyspnea on exertion Qualified Code(s): R06.00 - Dyspnea, unspecified (3) Chronic allergic rhinitis: Code(s): J30.9 - Allergic rhinitis, unspecified Category: Medical (4) Chest pain: Code(s): R07.9 - Chest pain, unspecified Category: Medical Qualifiers: Chest pain type: unspecified Qualified Code(s): R07.9 - Chest pain, unspecified Plan start Breztri BID (coupon provided) CHULA as needed continue Singulair continue Zyrtec as needed continue Duoneb F/U 4 months Medications: New hsswqmwskt-ibfyufoc-xwmmrliukk 160-9-4.8 mcg/actuation (Breztri Aerosphere) 2 inhalations inhalation BID 10.7 grams 11RF Coding Level of Care Code Est Pt Level 4 (28310) Diagnoses Moderate persistent asthma without complication J45.40 Asthma complication type: uncomplicated Asthma persistence: persistent Asthma severity: moderate Dyspnea on exertion R06.00 Dyspnea type: dyspnea on exertion Chronic allergic rhinitis J30.9 Chest pain, unspecified type R07.9 Chest pain type: unspecified Time Spent (min) 17
--- OUTSIDE RECORDS SUMMARY | 2024-12-29 10:15 | XMS_ITS | Patient Health Record ---
Author Organization [facility], [facility] Address [address] [place] [phone] Support Name Relationship Address Phone Fidelina Harman Guarantor Unknown [phone] REASON FOR REFERRAL No Information PLAN OF TREATMENT No Information Insurance Providers Payer Name Payer Address Payer Phone Subscriber Number Group Number Insured Name Patient Relationship to Insured Coverage Start Date Coverage End Date KATHERINE [address] [address] [place], [place] [id number] [facility] [place] Fidelina Harman Self - patient is the insured
--- OUTSIDE RECORDS SUMMARY | 2024-12-29 10:15 | XMS_ITS | Data Portability ---
Author Organization [place] - [facility], , [facility] Address [address] [place] [address] Assessment No assessment recorded. Plan of Treatment Reminders Order Date Submit Date Provider Last Modified By Organization Details Last Modified Time Details Appointments None record ed. Lab None record ed. Referral None record ed. Procedures None record ed. Surgeries None record ed. Imaging None record ed. Medication Orders None record ed. Patient TargetsNo targets recorded. Patient InstructionsNo instructions recorded. Reason for Referral None Reported. Results Created Date Observation Date Name Description Value Unit Range Abnormal Flag Note LastModifiedBy Organization Detail LastModifiedTime 06/15/20 06 06/16/2006 CBC WBC 4.6 K/?L 4.6-10 .2 Not Available [address], [address], 12/25/2008 03:26:04 06/15/20 06 06/16/2006 CBC lymph # 2.5 K/?L 0.6-3. 4 Not Available [address], [address], 12/25/2008 03:26:04 06/15/20 06 06/16/2006 CBC mid # 0.4 K/?L 0.0-1. 8 Not Available [address], [address], 12/25/2008 03:26:04 06/15/20 06 06/16/2006 CBC gran # 1.7 K/?L 2.0-6. 9 low Not Available [address], [address], 12/25/2008 03:26:04 06/15/20 06 06/16/2006 CBC lymph % 54.6 % 10.0-5 0.0 high Not Available [address], [address], 12/25/2008 03:26:04 06/15/20 06 06/16/2006 CBC mid % 9.1 % 0.1-24 .0 Not Available [address], [address], 12/25/2008 03:26:04 06/15/20 06 06/16/2006 CBC gran % 36.3 % 37.0-8 0.0 low Not Available [address], [address], 12/25/2008 03:26:04 06/15/20 06 06/16/2006 CBC RBC 4.45 M/?L 4.04-5 .48 Not Available [address], [address], 12/25/2008 03:26:04 06/15/20 06 06/16/2006 CBC HGB 12.8 g/dL 12.2-1 6.2 Not Available [address], [address], 12/25/2008 03:26:04 06/15/20 06 06/16/2006 CBC HCT 37.6 % 37.7-4 7.9 low Not Available [address], [address], 12/25/2008 03:26:04 06/15/20 06 06/16/2006 CBC MCV 84.5 ?L 80.0-9 7.0 Not Available [address], [address], 12/25/2008 03:26:04 06/15/20 06 06/16/2006 CBC MCH 28.8 pg 27.0-3 1.2 Not Available [address], [address], 12/25/2008 03:26:04 06/15/20 06 06/16/2006 CBC MCHC 34.0 g/dL 31.8-3 5.4 Not Available [address], [address], 12/25/2008 03:26:04 06/15/20 06 06/16/2006 CBC plt 266.0 K/?L 142.0- 424.0 Not Available [address], [address], 12/25/2008 03:26:04 06/15/2006/16/2006 CBC RDW 13.0 % 11.6-1 4.8 Not Available [address], [address], 12/25/2008 03:26:04 06/15/20 06 06/16/2006 CBC _MPV 0.0 Not Available [address], [address], 12/25/2008 03:26:04 06/15/20 06 06/17/2006 renal funct ion panel glucose 85 mg/dL 70-100 clini heron refer ence range s fasti ng gluco se <100 mg/dL = jerry l fasti ng gluco se; 100-1 25 mg/dL = ifg (impa ired fasti ng gluco se); >126 mg/dL = provi siona l diagn osis of diabe darshana (conf irm by repea t testi ng on A .) Not Available [address], [address], 12/25/2008 03:26:03 06/15/2006/17/2006 renal funct ion panel BUN 7 mg/dL 7-18 Not Available [address], [address], 12/25/2008 03:26:03 06/15/20 06 06/17/2006 renal funct ion panel creatinine 0.8 mg/dL 0.8-1. 3 Not Available [address], [address], 12/25/2008 03:26:03 06/15/20 06 06/17/2006 renal funct ion panel B/C 8.8 ratio Not Available [address], [address], 12/25/2008 03:26:03 06/15/20 06 06/17/2006 renal funct ion panel sodium 143 mmol/ L 136-14 5 Not Available [address], [address], 12/25/2008 03:26:03 06/15/20 06 06/17/2006 renal funct ion panel potassium 3.6 mmol/ L 3.5-5. 1 Not Available [address], [address], 12/25/2008 03:26:03 06/15/20 06 06/17/2006 renal funct ion panel chloride 101 mmol/ L 96-107 Not Available [address], [address], 12/25/2008 03:26:03 06/15/20 06 06/17/2006 renal funct ion panel _anion gap 9.0 Not Available [address], [address], 12/25/2008 03:26:03 06/15/20 06 06/17/2006 renal funct ion panel CO2 33 mmol/ L 21-32 high Not Available [address], [address], 12/25/2008 03:26:03 06/15/2006/17/2006 renal funct ion panel calcium 9.2 mg/dL 8.5-10 .3 Not Available [address], [address], 12/25/2008 03:26:03 06/15/20 06 06/17/2006 renal funct ion panel albumin 4.0 g/dL 3.4-5. 0 Not Available [address], [address], 12/25/2008 03:26:03 06/15/20 06 06/17/2006 renal funct ion panel phosphorous 3.50 mg/dL 2.50-4 .90 Not Available [address], [address], 12/25/2008 03:26:03 06/15/20 06 06/16/2006 HCG quali tativ e, serum HCG (screen) NEGATI VE Not Available [facility] [address], [place], [address], 12/25/2008 03:26:03 06/15/20 06 06/16/2006 CBC w/dif f segs 33 % Not Available [address], [address], 12/25/2008 03:26:03 06/15/20 06 06/16/2006 CBC w/dif f lymph 59 % Not Available [address], [address], 12/25/2008 03:26:03 06/15/20 06 06/16/2006 CBC w/dif f mono 4 % Not Available [address], [address], 12/25/2008 03:26:03 06/15/20 06 06/16/2006 CBC w/dif f eosin 4 % Not Available [address], [address], 12/25/2008 03:26:03 Result Notes None recorded. Problems Name Problem SNOMED Code Status Onset Date Resolution Date Notes Provider Name and Address Organization Details Recorded Time Mixed hyperlipid emia 103106401 Active 2004 Not Available [facility] 3 03:12:10 Bunion 493806591 Active 2005 Not Available [facility] 3 03:12:10 Gastroesop hageal reflux disease 464681614 Active 2005 Not Available [facility] 3 03:12:10 Extrinsic asthma with asthma attack Active 2004 Not Available [facility] 3 03:12:10 Osteoarthr itis of knee 342933830 Active 2005 Not Available [facility] 3 03:12:10 Benign essential hypertensi on 8997462 Active 2003 Not Available [facility] 3 03:12:10 Neck pain 38490233 Completed 200409/14/2013 Not Available [facility] 3 02:00:35 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 87776607 Active 2003 Not Available [facility] 3 03:12:10 Localized, 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 643212123 Active 2005 Not Available [facility] 3 03:12:10 Localized, primary osteoarthr itis 321189453 Active 2005 Not Available [facility] 3 03:12:10 Emphysemat ous bronchitis 909118934 Active 2004 Not Available [facility] 3 03:12:10 Finding by method 695702738 Completed 200409/14/2013 Not Available [facility] 3 02:01:56 Pneumonia 409512298 Completed 200409/14/2013 Not Available [facility] 3 02:02:25 Knee pain Completed 200509/14/2013 Not Available [facility] 3 02:00:41 Inflamed seborrheic keratosis 655372570 Completed 200309/14/2013 Not Available [facility] 3 02:03:38 Anemia 924633976 Active 2005 Not Available [facility] 3 03:12:10 Menopausal symptom 65029393 Completed 200409/14/2013 Not Available [facility] 3 02:01:29 Elevated blood-pres sure reading without diagnosis of hypertensi on 408182621 Active 2003 Not Available [facility] 3 03:12:10 Degenerati ve joint disease involving multiple joints 839245867 Active 2004 Not Available [facility] 3 03:12:10 Peripheral venous insufficie ncy 94651498 Active 2003 Not Available [facility] 3 03:12:10 Hypothyroi dism 32296053 Active 2003 Not Available [facility] 3 03:12:10 Splinter foreign body 506210296 Completed 200509/14/2013 Not Available [facility] 3 02:04:17 Allergy Active 2003 Not Available [facility] 3 03:12:10 Problem Notes None recorded. Medical Equipment None Reported. Medications Name Sig Start Date Stop Date Status Note LastModified by Organization Details LastModified Time triamterene 75 mg-hydrochlor othiazide 50 mg tablet 008 active Take 1.00 tabs every day before noon Not Available Not Available Not Available Vitals None Recorded Social History None recorded. Functional Status None recorded. Mental Status None recorded. Family History Nothing Reported. Medical History No medical history recorded. Gynecological HistoryNo gynecological history recorded. Obstetrics History GPAL:G 0 P 0 0 0 0 Immunizations Vaccine Type Date Status Note Provider Nam e and Address Organization Details Recorded Time Td(adult) unspecified formulation 5 completed Not Available [facility] 09/10/2011 05:21:07 pneumococcal polysaccharide PPV23 5 completed Not Available [facility] 09/10/2011 05:21:07 Past Encounters Encounter ID Performer Location Encounter Start Date Encounter Closed Date Diagnosis/Indication Diagnosis SNOMED-CT Code Diagnosis ICD10 Code Diagnosis Note [id number] [facility] [place] [address] [place] [address] 03/06/2004 09:19:02 03/06/2004 09:20:25 [id number] [facility] [place] [address] [place] [address] 03/06/2004 08:24:10 03/06/2004 17:44:27 [id number] [facility] [place] [address] [place] [address] 01/01/2005 11:35:40 01/01/2005 17:35:45 [id number] FP [facility] [place] [address] [place] [address] 01/15/2005 09:04:05 01/16/2005 08:49:00 [id number] FP [facility] [place] [address] [place] [address] 02/18/2005 08:42:46 02/18/2005 17:28:52 [id number] LAB - [facility] [place] [address] [place] [address] 02/18/2005 09:32:17 02/18/2005 09:32:43 [id number] Radiology , [facility] [address] [place] [address] 03/08/2005 14:53:42 03/10/2005 08:35:30 [id number] , [facility], [address]ICE [address] [place] [address] 03/08/2005 13:55:22 03/08/2005 14:05:57 [id number] FP, [facility] [place] [place] [address] 03/09/2005 00:00:00 11/15/2008 02:02:29 [id number] FP, [facility], [facility] [place] [address] 03/10/2005 00:00:00 11/15/2008 02:02:29 [id number] FP, [facility] [place] [address] [place] [address] 03/18/2005 09:47:15 03/19/2005 08:26:29 [id number] LAB - [facility] [place] [address] [place] [address] 03/28/2005 09:37:19 03/28/2005 09:37:40 [id number] FP, [facility] [place] [address] [place] [address] 04/09/2005 09:06:57 04/09/2005 15:08:59 [id number] FP [facility] [place] [place] [address] [place] [address] 04/21/2005 09:03:43 04/21/2005 14:42:09 [id number] FP [facility] [place] [place] [address] [place] [address] 05/27/2005 14:49:55 05/28/2005 10:17:28 [id number] FP, [facility] [place] [address] [place] [address] 09/23/2005 11:33:17 09/23/2005 15:53:46 [id number] FP, [facility], OFFICE [address] [place] [address] 09/26/2005 09:36:02 09/29/2005 08:46:31 [id number] FP [facility] [place] [place] [address] [place] [address] 11/12/2005 09:59:46 11/13/2005 08:38:30 [id number] FP, [facility] [place] [place]ICE [address] [place] [address] 05/18/2006 15:12:55 05/19/2006 09:40:49 [id number] FP, [facility] [place] [place]ICE [address] [place] [address] 06/15/2006 15:22:27 06/16/2006 11:40:53 [id number] [facility] [place] [address] [place] [address] 06/15/2006 16:16:37 06/15/2006 16:16:50 [id number] FP, [facility] [place] [address] [place] [address] 09/13/2008 13:37:00 11/15/2008 02:02:29 Health Concerns Section Related Observation LastModified by Organization Detai ls LastModified Time None Recorded Concern Status LastModified by Organization Details LastModified Time None Recorded Advance Directives Directive None Recorded Payers Encounter Date Sequence Insurance Name Policy Number Policy Gaines Covered Member ID Gaines Member ID Guarantor Name 11/12/2005 1 [facility] HEALTH NET PLAN (MEDICAID HMO) Shereen Harman [id number] Fidelina Harman 05/18/2006 1 [facility] (MEDICAID HMO) Shereen Harman [id number] Fidelina Harman 06/15/2006 1 [place] [facility] Fidelina Harman [id number] Fidelina Harman 06/15/2006 1 [facility] (MEDICAID HMO) Shereen Harman [id number] Fidelina Harman 09/13/2008 3 [place] [facility] [id number] Fidelina Harman [id number] Fidelina Harman 09/13/2008 1 MEDICARE [place]: [facility] Fidelina Harman [id number] Fidelina Harman OBGyn Episode No OBEpisode recorded.
--- OUTSIDE RECORDS SUMMARY | 2024-12-29 10:15 | XMS_ITS | Encounter Summary ---
Author Organization [facility] Address [address] [place] [address] Care Team Providers Care Production Line Name Role Phone Goodrich Susan Lei [employer] Primary Care Provider [phone] Reason for Visit * Reason Onset Date Comments [facility] 31784/72818 Encounter Details Date Type Department Care Team (Late st Contact Info) Description 12/09/[address] [facility] Cardiology [address] [place] [phone] Rafy Graham MD [address] [place] [address],[address] [id number] [facility] Denial for CPT 65364/39190 Social History Tobacco Use Types Packs/Day Years Used Date Smoking Tobacco: Never Smokeless Tobacco: Never Alcohol Use Standard Drinks/Week Comments Yes 0 (1 standard drink = 0.6 oz pur e alcohol) Comments Unknown Sex and Gender Information Value Date Recorded Sex Assigned at Not on file Legal Sex Female 4:14 PM EST Gender Identity Not on file Sexual Orientation Not on file documented as of this encounter Progress Notes * Kristi Monsalve - 12/09/2024 2:03 PM EST Received denial letter for CPT Code 00300/29499 that was billed on 1124 due to documentation not supporting device. Sent to [place] for further review. documented in this encounter Plan of Treatment Upcoming Encounters Date Type Department Care Team (Late st Contact Info) Description 01/09/2025 9:40 AM EDT Office Visit [facility] - [address] [facility] [address] [place] [phone] Petrona Cartagena NP [address] [place] [phone] documented as of this encounter Visit Diagnoses Not on filedocumented in this encounter Care Teams Production Line Relationship Specialty Start Date End Date Susan Goodrich NP [address] [place] [phone] PCP - General Nurse Practitioner 08/30/24 documented as of this encounter
--- OUTSIDE RECORDS SUMMARY | 2024-12-29 10:15 | XMS_ITS | Patient Health Record ---
Author Organization [facility] [place] Address [address] [place] [address] Care Team Providers Care Registered Nurse Supervisor Name Role Phone Carmencita Ansari Unavailable [phone] Allergies Allergen (clinical drug ingredient) Drug/Non Drug Allergy documented on EMR Reaction Allergy Type Onset Date Status amoxicillin Amoxicillin Unknown Drug Allergy Act aidee Penicillin Unknown Drug Allergy Active Shrimp/Shell Fish throat swells Drug Allergy Active Reason For Referral No Information Medications Medication SIG (Take, Route, Frequency, Duration) Notes Start Date End Date Status Ventolin HFA Not-James ing Advair Diskus Not-Ta toño Albuterol Sulfate Ac tive Losartan Potassium-HCTZ 50-12.5 MG 1 tablet Orally Once a day Active Breo Ellipta 100-25 MCG/INH 1 puff Inhal ation Once a day Not-Taking Spiriva Respimat 2.5 MCG/ACT Inhalation Not-Taking ProAir HFA Not-Takin g hydroCHLOROthiazide 25 MG 1 tablet Orall y Once a day Not-Taking Ipratropium Jackson Not-Taking Social History Tobacco Use: Social History Observation Description Date Details (start date - stop date) Never Smoker NA - NA Tobacco Use/Smoking Question Answer Notes Are you a: nonsmoker Additional Findings: Tobacco Non-User Current no n-smoker Alcohol Screen Question Answer Notes Did you have a drink containing alcohol in the p ast year? Yes Points 0 Interpretation Negative Tobacco use other than smoking: Question Answer Notes Are you an other tobacco user? No Problems No Known Problems Plan Of Treatment Pending Test Test Name Order Date , [id number]/INJECT, JOINT/BURSA 0 11/08/2015 Insurance Providers Payer Name Payer Address Payer Phone Subscriber Number Group Number Insured Name Patient Relationship to Insured Coverage Start Date Coverage End Date [id number] [address] [place] [address] [id number] [facility] Fidelina Harman Self - patient is the insured Medical (General) History Medical History History ICD Code Arthritis Back,Hip,and Knee pain Mumps Surgical History Surgery Date(Month/Year) partial hysterectomy 10/1999
--- OUTSIDE RECORDS SUMMARY | 2024-12-29 10:15 | XMS_ITS | Clinical Summary ---
Author Organization [address] [facility] Address [address] [place] [address] Phone Care Team Providers Care Insulator Apprentice Name Role Phone Susan Goodrich MANUAL LATHE OPERATOR Primary Care Provider [phone] Allergies Active Allergy Reactions Criticality Noted Date Comments Amoxicillin 11/13/2017 Hydrochlorothiazide 12/02/2017 Penicillins 12/02/2017 Medications losartan (COZAAR) 25 mg tablet Take 1 tablet (25 mg total) by mouth 1 (one) time each day. 4 Active cholecalciferol (VITAMIN D-3) 50 mcg (2,000 unit) capsule Take 1 capsule (2,000 Units total) by mouth 1 (one) time each day. 4 Active ergocalciferol (VITAMIN D-2) 1,250 mcg (50,000 unit) capsule Take 1 Capsule by mouth once a week. 4 Active albuterol HFA (PROAIR HFA ; PROVENTIL HFA ; VENTOLIN HFA) 90 mcg/actuation inhaler Inhale 2 Puffs into the lungs every 6 hours as needed for Cough or Wheezing for up to 30 days. 9 Active inhaler, assist devices (AEROCHAMBER MV MISC) 1 Device by Does not apply route as needed (with mdi). 9 Active formoterol (PERFOROMIST) 20 mcg/2 mL nebulizer solution Inhale 2 mL into the lungs 2 times daily for 30 days. COPD J49.5 8 Active albuterol 2.5 mg /3 mL (0.083 %) nebulizer solution Take 1 Vial by nebulization 3 times daily for 180 days. 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 Encounters Date Type Department Care Team Description 12/09/[address] [place] [address] Rafy Graham MD [facility] Denial for CPT [id number]/[id number] 10/27/[address] [place] [address] Rafy Graham MD from Last 3 Months Surgical History Surgery Date Site/Laterality Comments HYSTERECTOMY 1999 PROCEDURE: HISTORICAL HYSTERECTOMY; COMMENT: partial hysterectomy EYE SURGERY PROCEDURE: HISTORICAL EYE SURGERY; COMMENT: retinal detachment TONSILLECTOMY PROCEDURE: HISTORICAL TONSILLECTOMY CATARACT EXTRACTION Bilateral PROCEDURE: HISTORICAL CATARACT REMOVAL; COMMENT: with intraocular lens implants CARDIAC CATHETERIZATION DONE ON 07/12/2024 AT [facility] INDICATIONS:Abnormal stress perfusion study Medical History Medical History Date Comments Hypertension 12/02/2017 DX:Hypertension Environmental allergies 12/02/2017 DX:Envir onmental allergies; COMMENT: No longer receiving immunotherapy Diverticulosis 12/02/2017 DX:Diverticulosi s Hepatic cyst 12/02/2017 DX:Hepatic cyst; COMMENT: left Osteoarthritis 12/02/2017 DX:Osteoarthriti s; COMMENT: spine Asthma-COPD overlap syndrome (CMS/HCC) 11/13/2017 DX:Asthma-COPD overlap syndrome (HCC) Social History Tobacco Use Types Packs/Day Years Used Date Smoking Tobacco: Never Smokeless Tobacco: Never Alcohol Use Standard Drinks/Week Comments Yes 0 (1 standard drink = 0.6 oz pur e alcohol) Comments Unknown Sex and Gender Information Value Date Recorded Sex Assigned at Not on file Legal Sex Female 4:14 PM EST Gender Identity Not on file Sexual Orientation Not on file Obstetrics History Last Filed Vital Signs Vital Sign Reading Time Taken Comments Blood Pressure 158/100 01/14/2024 11:38 AM EDT Pulse 98 01/14/2024 11:38 AM EDT Temperature - - Respiratory Rate - - Oxygen Saturation - - Inhaled Oxygen Concentration - - Weight 77.1 kg (170 lb) 01/14/2024 11:38 AM EDT Height 180.3 cm (5' 11 ) 01/14/2024 11:38 AM EDT Body Mass Index 23.71 01/14/2024 11:38 AM EDT Plan of Treatment Upcoming Encounters Date Type Department Care Team (Late st Contact Info) Description 01/09/2025 9:40 AM EDT Office Visit [facility] [address] [facility] [address] [place] [address] Petrona Cartagena, CORBIN [address] [place] [phone] Health Maintenance Due Date Last Done Comments DTaP,Tdap,and Td Vaccines (1 - Tdap) 1960 Pneumococcal Vaccine: 50+ Years (1 of 2 - PCV) 1960 Zoster Vaccines (1 of 2) 1991 RSV Immunization Patients 60 + Years Old (1 - 1-dose 75+ series) 2016 Depression Screening 09/24/2022 Falls Risk Assessment 09/24/2022 Social Influencers of Health Screening 09/24/2022 COVID-19 Vaccine (4 - 2023-2 5 season) 2024 04/21/2022, 05/20/2021, 04/29/2021 Influenza Vaccine (#1) 2024 Hypertension/CHF/CAD Annual BMP Blood Test 01/13/2025 01/14/2024 Cholesterol Screening (Lipid Panel) 01/13/2029 01/14/2024 Osteoporosis Screening (Bone Density Screening) 03/08/2029 03/08/2019 HIB Vaccines Aged Out No longer eligi ble based on patient's age to complete this topic HPV Vaccines Aged Out No longer eligi ble based on patient's age to complete this topic Hepatitis A Vaccines Aged Out No long er eligible based on patient's age to complete this topic Hepatitis B Vaccines Aged Out No long er eligible based on patient's age to complete this topic IPV Vaccines Aged Out No longer eligi ble based on patient's age to complete this topic MMR Vaccines Aged Out No longer eligi ble based on patient's age to complete this topic Meningococcal ACWY Vaccine Aged Out N o longer eligible based on patient's age to complete this topic Meningococcal B Vacine Aged Out No lo nger eligible based on patient's age to complete this topic RSV Immunization Patients Under 20 months Aged Out No longer eligible b ased on patient's age to complete this topic Varicella Vaccines Aged Out No longer eligible based on patient's age to complete this topic Procedures Procedure Name Priority Date/Time Associated Diagnosis Comments ANNUAL BMP BLOOD TEST Routine 01/14/2024 LIPID PANEL Routine 01/14/2024 [facility] DEXA AXIAL SKELETON Routine 03/08/2019 7:38 AM EDT Asymptomatic menopausal state from Last 3 Months or Most Recently Relevant to Health Maintenance Results * Annual BMP Blood Test (01/14/2024) [facility] Annual BMP Blood Test abstracted Historical Provider HEALTH MAINTENANCE Final Result * (ABNORMAL) Lipid panel (01/14/2024) [facility] LDL/HDL Ratio 3 0 - 4 Triglycerides 207(A) 0 - 150 mg/dL Cholesterol 224(A) 0 - 200 mg/dL HDL 68 >=40 mg/dL LDL Cholesterol 115(A) 0 - 100 mg/dL Blood Venous blood specimen / Unknown Historical Provider LAB BLOOD ORDERABLES Nica l Result * [facility] DEXA AXIAL SKELETON (03/08/2019 7:38 AM EDT) Anatomical Region Laterality Modality Mammography 03/07/2019 10:5 5 AM EDT Narrative 03/08/2019 7:38 AM EDT [facility] Diagnostic Imaging Department [address] [place] [id number] Patient: ??FIDELINA HARMAN ?/Age/Sex: 1940 - 78 - F Unit#: ??[id number] ? Location/Status: ??SPDIMAM/REG CLI ? Mnemonic/Ordering Site: ??MAMDEXAAX/SPMAM Ordering Physician: ??BARB KWOK Dania Dexa Axial Skeleton - 03/07/19 114 HISTORY: ??The patient is a 78-year-old postmenopausal female with clinical concern for metabolic bone disease. FINDINGS: ??Dual energy x-ray absorptiometry of the lumbar spine and femurs is performed. The mean bone mineral density at L1-2 is 0.988 gm/cm2 which is 85% of that of young normals and 90% of that of age matched controls. This yields a T- score of -1.5 and a Z-score of -0.9 which is diagnostic of osteopenia. The mean bone mineral density of the femurs bilaterally is 0.851 gm/cm2 which is 84% of that of young normals and 90% of that of age matched controls. ??This yields a T-score of -1.2 and a Z-score of -0.7 which is diagnostic of osteopenia. IMPRESSION: 1. Osteopenia. 2. FRAX analysis yields a 10-year probability of major osteoporotic fracture of 10.2% and a 10-year probability of hip fracture of 3.0%. Code 50282 Dictating Physician: ??LAZARO WILLIS MD Electronically Signed by: ??LAZARO WILLIS MD Dic Date/Time: ??03/08/1936 Sign date/Time: ??03/08/1937 Procedure Note Lazaro Willis MD - 10/14/2022 [facility] Diagnostic Imaging Department [address] [place] [address] Patient: FIDELINA HARMAN D.O.B./Age/Sex: 1940 - 78 - F Unit#: [id number] Location/Status: [facility] CLI Mnemonic[facility] Ordering Physician: BARB KWOK [facility] Dexa Axial Skeleton - 03/07/19 1149 HISTORY: The patient is a 78-year-old postmenopausal female withclinical concern for metabolic bone disease. FINDINGS: Dual energy x-ray absorptiometry of the lumbar spine and femursis performed. The mean bone mineral density at L1-2 is 0.988 gm/cm2 which is85% of that of young normals and 90% of that of age matched controls. This yieldsa T- score of -1.5 and a Z-score of -0.9 which is diagnostic of osteopenia. The mean bone mineral density of the femurs bilaterally is 0.851 gm/ab8gufsr is 84% of that of young normals and 90% of that of age matched controls.This yields a T-score of -1.2 and a Z-score of -0.7 which is diagnostic of osteopenia. IMPRESSION: 1. Osteopenia. 2. FRAX analysis yields a 10-year probability of major osteoporoticfracture of 10.2% and a 10-year probability of hip fracture of 3.0%. Code 13243 Dictating Physician: LAZARO WILLIS MD Electronically Signed by: LAZARO WILLIS MD Dic Date/Time: 03/08/1936 Sign date/Time: 03/08/19737 Barb Kwok ASSOCIATE PROGRAMMER IM BI PROCEDURES Final Res ult from Last 3 Months or Most Recently Relevant to Health Maintenance Insurance [facility]ICAID - [place] Care Teams Insulator Apprentice Relationship Specialty Start Date End Date Susan Goodrich NP [address] [place] [phone] PCP - General Nurse Practitioner 08/30/24
== END 2024-12-29 10:21 | disposition home or self-care (01) ==
PROVIDERS: PCP Internal Medicine; Visit Provider Hospitalist
DX: J45.40 Moderate persistent asthma, uncomplicated (principal); R06.00 Dyspnea, unspecified; J30.9 Allergic rhinitis, unspecified; R07.9 Chest pain, unspecified
CPT/HCPCS: 99214

== ENCOUNTER → 2024-12-29 09:14 | Outpatient (BNVA) | payer OTHER, SELFPAY | PROVIDERS: PCP Internal Medicine; Visit Provider Hospitalist | DX: J45.40 Moderate persistent asthma, uncomplicated (principal); J30.9 Allergic rhinitis, unspecified; R06.00 Dyspnea, unspecified; R07.9 Chest pain, unspecified | CPT/HCPCS: 99212 ==

== ENCOUNTER 2025-10-06 10:19 | Outpatient (AMB) | payer MEDICARE, SELFPAY ==
[2025-10-06 10:35] VITALS: BP 130/72; PULSE 95; O2SAT 97; BMI 22.4
--- NOTE | 2025-10-06 10:35 | A.OFFVIS_ITS ---
Vital Signs 10/06/25 10:35 Height 5 ft 11 in Weight 160 lb 14.999 oz BMI 22.4 BP 130/72 Blood Pressure Location Lt brachial Position Sitting Pulse 95 Pulse Source Pulse Oximeter Pulse Oximetry (%) 97 Oxygen Delivery Method Room Air Intake Visit Reasons: shortness of breath Cnc Service Engineer Required: No Allergies influenza A (H1N1) virus vaccine m-morris-split 2008 (From influenza A (H1N1)) Allergy (Severe, Verified 10/06/25 10:39) Rash pneumococcal vaccine Allergy (Severe, Verified 10/06/25 10:39) rash amoxicillin Allergy (Intermediate, Verified 10/06/25 10:39) hives ENVIRONMENTAL Allergy (Severe, Uncoded 10/06/25 10:39) Rash HPI Comments Details: 85 year-old lady, lifetime nonsmoker, with followed for moderate to severe persistent asthma. At the last office visit patient has been switched to Wixela, however she still has suboptimal control of her underlying allergies. She also uses Singulair and albuterol MDI. She has completed her laboratory testing. She denies any recent exacerbation, though her symptoms are not controlled at the baseline. She is still having issues with her asthma. Having significant chest tightness. Moderate severity. Response of the nebulized therapy but she has been having to use it a couple times a day. She did start the Xolair. She states that wixela inhalers not helping. Will try to maximize her respiratory therapy at this time. In the meantime she needs to continue taking the Xolair to see if this can be effective for. I explained to her that it may take up to 4- 6 months to see the real affects of the Xolair. 12/29/2024 the patient is here for a pulmonary follow-up visit. She had been having hard time with her asthma and also waking up short of breath with wheezing chest pain and pressure. The patient also has had a syncopal episode and was evaluated at [facility]. She did have a CTA personally reviewed by me without any acute pulmonary disease. The patient has been using her inhaler but feels that he has not working. She understands that she has severe asthma and therefore needs to be on a triple therapy. I will send her Breztri inhaler in order for her to have 1 inhaler for maintenance and then she can use her rescue medicine as well. The patient also needs to be on allergy medications. She has significant allergies to environmental allergies to cats and dogs and unfortunately she has a cat in the house. Therefore she can start Zyrtec in the morning and then Singulair she should continue at nighttime. Patient also comp laining some epigastric discomfort. Symptoms worse at nighttime. 10/06/2025 the patient is here for pulmonary follow-up visit. The patient continues to complain of shortness of breath with minimal activity. Moderate severity. Also complaining of some chest discomfort. Mainly on the right side. Mainly reproducible. Denies any pleuritic component. She has been on the Breztri inhaler. Has not seen significant improvement. She tends use her nebulizer every 4 hours. Therefore she is agreeable to switching her over to nebulized therapy. If we can add her on a long-acting beta agonist via the nebulizer and inhaled corticosteroid via the nebulizer hopefully her symptoms will subside and she is able to sleep at nighttime was now she is waking up short of breath needing her rescue inhaler at nighttime. The patient should have an x-ray and she should also have blood work. She can not do it right now so I gave her the sleep so she can do them elsewhere. If she does not respond to the therapy she can always call and she understands she can always use the albuterol as needed. The patient will follow-up in 4-6 months if any issues arise she can always call for further recommendations. 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 Maternal Grandmother HTN (hypertension) Diabetes mellitus Daughter Tonsillar cancer Smoker Social History Housing: Apartment Housing Other:: living with daughter Alcohol intake: current Alcohol intake frequency: a few times a month Alcohol type: beer Patient Tobacco Use Status: Never used Tobacco e-Cigarette/Vaping Use: Never Used Second Hand Smoke Exposure: No service: No Current occupational status: retired Review of Systems Const Reports fatigue, Denies fever(s), Denies night sweats, Reports poor appetite, Reports weakness and Reports weight loss ENT Denies change in voice, Denies lip swelling, Denies mouth pain, Reports nasal congestion, Reports nasal discharge and Denies tongue swelling Card Reports chest pain, Reports dyspnea and Reports dyspnea on exertion Resp Reports cough, Denies hemoptysis, Reports dyspnea, Reports dyspnea on exertion and Reports wheezing GI Reports abdominal pain Musc Denies no additional complaints Neuro Denies Neuro-related abnormal movements and Reports weakness Psych Denies no additional complaints Endo Reports fatigue Dat/Lymph Denies easy bleeding and Denies lymphadenopathy Aller/Immun Denies lip swelling, Denies tongue swelling and Reports wheezing Physical Exam Vital Signs: Last Vital Signs Pulse 95 10/06/25 10:35 BP 130/72 10/06/25 10:35 Pulse Ox 97 10/06/25 10:35 Oxygen Delivery Method Room Air 10/06/25 10:35 BMI result Body Mass Index 22.4 Const General: alert HEENT Head: Yes normocephalic Neck Neck: Yes normal visual inspection, Yes full ROM and Yes no lymphadenopathy Chest Chest palpation & inspection: tenderness sternum and costal cartilage Resp Effort & Inspection: normal respiratory effort Auscultation: diminished lung sounds Cardio Rate: regular rate Rhythm: regular rhythm Heart sounds: S1 normal heart sound present and S2 normal heart sound present GI Palpation (GI): Soft to palpation and nontender Auscultation: normal bowel sounds Skin General skin exam: rashes and/or lesions noted Assessment & Plan Assessment & Plan (1) Asthma: Code(s): J45.909 - Unspecified asthma, uncomplicated Category: Medical Qualifiers: Asthma complication type: uncomplicated Asthma persistence: persistent Asthma severity: moderate Qualified Code(s): J45.40 - Moderate persistent asthma, uncomplicated (2) Dyspnea: Code(s): R06.00 - Dyspnea, unspecified Category: Medical Qualifiers: Dyspnea type: dyspnea on exertion Qualified Code(s): R06.00 - Dyspnea, unspecified (3) Chronic allergic rhinitis: Code(s): J30.9 - Allergic rhinitis, unspecified Category: Medical (4) Chest pain: Code(s): R07.9 - Chest pain, unspecified Category: Medical Qualifiers: Chest pain type: unspecified Qualified Code(s): R07.9 - Chest pain, unspecified (5) Asthma-COPD overlap syndrome: Code(s): J44.9 - Chronic obstructive pulmonary disease, unspecified Category: Medical Plan stop Breztri BID (coupon provided) start Brovana start Budesonide nebs CHULA as needed continue Singulair continue Zyrtec as needed continue Duoneb BID as needed CXR bloodwork F/U 3-4 months Orders: Orders Immunoglobulin E 10/06/25 J44.9 - Chronic obstructive pulmonary disease, unspecified XR chest 2V 10/06/25 R07.9 - Chest pain, unspecified Complete Blood Count Auto Diff 10/06/25 J44.9 - Chronic obstructive pulmonary disease, unspecified Erythrocyte Sedimentation Rate 10/06/25 J44.9 - Chronic obstructive pulmonary disease, unspecified Medications: New albuterol sulfate 90 mcg/actuation 2 inhalations inhalation Q6H PRN 18 grams 12RF shortness of breath or wheezing 30 days J44.9 - Chronic obstructive pulmonary disease, unspecified arformoterol (Brovana) 2 mL inhalation Q12H 120 mL 11RF 30 days J44.9 - Chronic obstructive pulmonary disease, unspecified budesonide 0.5 mg (2 mL) inhalation BID 120 mL 11RF 30 days J44.9 - Chronic obstructive pulmonary disease, unspecified Discontinued Ventolin HFA 90 mcg/actuation (albuterol sulfate) Discontinued Reason: Doctor's Order 2 puffs inhalation Q6H PRN 18 grams 0RF for wheezing NS J45.909 - Unspecified asthma, uncomplicated beclomethasone dipropionate 80 mcg/actuation (Qvar RediHaler) Discontinued Reason: Doctor's Order 2 inhalations inhalation BID 30 days 10.6 grams 11RF [id number] 160-9-4.8 mcg/actuation (Breztri Aerosphere) Discontinued Reason: Doctor's Order 2 inhalations inhalation BID 10.7 grams 11RF Coding Level of Care Code Add On Preventative Visit Only Diagnoses Moderate persistent asthma without complication J45.40 Asthma complication type: uncomplicated Asthma persistence: persistent Asthma severity: moderate Dyspnea on exertion R06.00 Dyspnea type: dyspnea on exertion Chronic allergic rhinitis J30.9 Chest pain, unspecified type R07.9 Chest pain type: unspecified Asthma-COPD overlap syndrome J44.9 Time Spent (min) 17
== END 2025-10-06 11:06 | disposition home or self-care (01) ==
PROVIDERS: PCP Internal Medicine; Visit Provider Hospitalist
DX: J45.40 Moderate persistent asthma, uncomplicated (principal); R06.00 Dyspnea, unspecified; J30.9 Allergic rhinitis, unspecified; R07.9 Chest pain, unspecified; J44.9 Chronic obstructive pulmonary disease, unspecified
CPT/HCPCS: 99214; G2211

== ENCOUNTER → 2025-10-06 10:19 | Outpatient (BNVA) | payer MEDICARE, SELFPAY | PROVIDERS: PCP Internal Medicine; Visit Provider Hospitalist | DX: J45.40 Moderate persistent asthma, uncomplicated (principal); J44.89 Other specified chronic obstructive pulmonary disease; R06.00 Dyspnea, unspecified; R07.9 Chest pain, unspecified | CPT/HCPCS: 99212 ==